=== PATIENT | male | born 1985 ===

== ENCOUNTER 2020-03-07 18:46 | Emergency (ER) | payer SELFPAY ==
[~2020-03-07] VITALS: Ht 180.3 cm; Wt 88.6 kg
[2020-03-07 19:03] VITALS: BP 129/73; Ht 180.3 cm; Wt 88.6 kg
[2020-03-07] MEDS ORDERED: TYLENOL W/CODEI1 TAB PO (19:29)
[2020-03-07] MEDS ORDERED: BACTRIM DS TAB1 EAC1 PO (19:29)
[2020-03-07] MEDS ORDERED: FLOXIN 0.3 % OTI5 ML LEFT EAR (19:29)
== END 2020-03-07 19:45 | disposition home or self-care (01) ==
LOC: D.ER 18:46
DX: H60.92 Unspecified otitis externa, left ear (principal)